=== PATIENT | male | born 1965 | race Caucasian/White ===

== ENCOUNTER 2020-09-10 04:15 | Emergency (ER) | payer SELFPAY ==
[~2020-09-10] VITALS: Ht 167.6 cm; Wt 68.2 kg
[2020-09-10 05:02] LABS: BASO % 0 % (0-3); EOS % 0 % (0-3); HEMOGLOBIN 16.6 g/dL (13.0-17.5); LYMPH # 0.6 x10^3/uL (1.0-4.8); LYMPH % 12 % (24-48); MEAN CORPUSCULAR HEMOGLOBIN 31 pg (25-35); MEAN CORPUSCULAR HGB CONC 35 g/dL (31-37); MEAN CORPUSCULAR VOLUME 89 fL (79-100); MONO # 0.3 x10^3/uL (0.0-1.1); MONO % 7 % (0-9); NEUT % 81 % (31-73); PLATELET COUNT 150 x10^3/uL (140-400); RED BLOOD COUNT 5.42 x10^6/uL (4.30-5.70); RED CELL DISTRIBUTION WIDTH 14.3 % (11.5-14.5)
[2020-09-10 05:10] LABS: CALCIUM 8.5 mg/dL (8.5-10.1); CREATININE 0.8 mg/dL (0.7-1.3); GFR 101.5; POTASSIUM 3.5 mmol/L (3.5-5.1)
[2020-09-10 05:16] LABS: ALBUMIN 4.2 g/dL (3.4-5.0); ALBUMIN/GLOBULIN RATIO 1.1 (1.0-1.7); TOTAL BILIRUBIN 0.6 mg/dL (0.2-1.0); TOTAL PROTEIN 7.9 g/dL (6.4-8.2)
--- NOTE | 2020-09-10 05:23 | PHYS DOC ---
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 Patient is a daily drinker- states today he drank 2 pints of vodka and 24 pack of beer. States his last drink of alcohol was 0300hrs. States he has had abdominal pain x 1 week. The location of pain is diffuse. He has had associated nausea and vomiting x 3 days. (DONN MOULTON DO) Review of Systems: Review of Systems: Review of systems: Constitutional symptoms- No fever, no chills. Eyes- No Discharge, No Visual Loss Respiratory symptoms- No shortness of breath, No wheezing, No Dyspnea on Exertion Cardiovascular Systems; No chest pain, No Palpitations, No syncope Gastrointestinal symptoms: Positive abdominal pain, Positive nausea, Positive vomiting no diarrhea. Genitourinary symptoms: No dysuria. Musculoskeletal symptoms: No back pain No extremity pain. NEUROLOGICAL Symptoms: No headache, no generalized weakness; No focal Weakness Skin: No rash. (DONN MOULTON DO) Heart Score: C/O Chest Pain: N/A Risk Factors: Risk Factors: DM, Current or recent (<one month) smoker, HTN, HLP, family history of CAD, obesity. Risk Scores: Score 0 - 3: 2.5% MACE over next 6 weeks - Discharge Home Score 4 - 6: 20.3% MACE over next 6 weeks - Admit for Clinical Observation Score 7 - 10: 72.7% MACE over next 6 weeks - Early Invasive Strategies (DONN MOULTON DO) Allergies: Allergies: Allergies Coded Allergies Type Severity Reaction Last Updated Verified No Known Drug Allergies 09/10/20 No (DONN MOULTON DO) Physical Exam: PE: General: alert, no acute distress. Skin: warm, dry and intact. HENT: bilateral external ears normal, oropharynx moist, nose normal. Head:: Normocephalic, atraumatic. Neck: Trachea midline. Eyes: EOMI, Normal conjunctiva, No drainage CARDIOVASCULAR: Regular rate and rhythm RESPIRATORY: No respiratory distress Back: Full range of motion. Skin: Warm, dry, no erythema, no rash. MUSCULOSKELETAL: Full range of motion of bilateral upper and lower extremities. GASTROINTESTINAL: Abdomen soft without rebound or guarding. NEUROLOGICAL: Alert and noted to person, place and time. No neurological deficits observed Psychiatric: Cooperative. Normal judgment (KENNEY,DONN I DO) Current Patient Data: Labs: Laboratory Tests Test 09/10/20 04:55 White Blood Count 5.0 x10^3/uL (4.0-11.0) Red Blood Count 5.42 x10^6/uL (4.30-5.70) Hemoglobin 16.6 g/dL (13.0-17.5) Hematocrit 48.0 % (39.0-53.0) Mean Corpuscular Volume 89 fL (79-100) Mean Corpuscular Hemoglobin 31 pg (25-35) Mean Corpuscular Hemoglobin Concent 35 g/dL (31-37) Red Cell Distribution Width 14.3 % (11.5-14.5) Platelet Count 150 x10^3/uL (140-400) Neutrophils (%) (Auto) 81 % (31-73) H Lymphocytes (%) (Auto) 12 % (24-48) L Monocytes (%) (Auto) 7 % (0-9) Eosinophils (%) (Auto) 0 % (0-3) Basophils (%) (Auto) 0 % (0-3) Neutrophils # (Auto) 4.0 x10^3/uL (1.8-7.7) Lymphocytes # (Auto) 0.6 x10^3/uL (1.0-4.8) L Monocytes # (Auto) 0.3 x10^3/uL (0.0-1.1) Eosinophils # (Auto) 0.0 x10^3/uL (0.0-0.7) Basophils # (Auto) 0.0 x10^3/uL (0.0-0.2) Sodium Level 139 mmol/L (136-145) Potassium Level 3.5 mmol/L (3.5-5.1) Chloride Level 97 mmol/L (98-107) L Carbon Dioxide Level 21 mmol/L (21-32) Anion Gap 21 (6-14) H Blood Urea Nitrogen 12 mg/dL (8-26) Creatinine 0.8 mg/dL (0.7-1.3) Estimated GFR (Cockcroft-Gault) 101.5 BUN/Creatinine Ratio 15 (6-20) Glucose Level 123 mg/dL (70-99) H Calcium Level 8.5 mg/dL (8.5-10.1) Total Bilirubin 0.6 mg/dL (0.2-1.0) Aspartate Amino Transferase (AST) 135 U/L (15-37) H Alanine Aminotransferase (ALT) 203 U/L (16-63) H Alkaline Phosphatase 68 U/L (46-116) Total Protein 7.9 g/dL (6.4-8.2) Albumin 4.2 g/dL (3.4-5.0) Albumin/Globulin Ratio 1.1 (1.0-1.7) Lipase 162 U/L (73-393) Laboratory Tests 09/10/20 04:55 Laboratory Tests 09/10/20 04:55 Vital Signs: Vital Signs Date Time Temp Pulse Resp B/P (MAP) Pulse Ox O2 Delivery O2 Flow Rate FiO2 09/10/20 04:15 98.2 92 18 162/91 (114) 99 Room Air 98.2 (DONN MOULTON DO) EKG: EKG: [] Performed at 0557 Rate 94 Normal sinus rhythm No ST elevation No ST depression No acute LA (DONN MOULTON DO) Radiology/Procedures: Radiology/Procedures: [] (DONN MOULTON DO) Course & Med Decision Making: Course & Med Decision Making Pertinent Labs and Imaging studies reviewed. (See chart for details) [] Patient was evaluated for chief complaint. Work-up consisted of laboratory a nalysis and radiologic imaging. Treatment included IV fluids and ativan. Results pending at shift change. Patient signed out to Dr Griffin-- disposition pending labs, radiologic imaging, and re-evaluation. (DONN MOULTON DO) Course & Med Decision Making Assumed care of patient at checkout. Initially on my reevaluation patient stated that he did want help with his alcoholism. He is complaining of severe anxiety. He was given Haldol for this. We will avoid benzodiazepines initially as patient is intoxicated. Romain from the [facility] team came to evaluate the patient. After being offered placement in a rehab facility with a Librium taper patient decided he does not want help with his alcohol and would like to go home. Patient does continue to have some nausea. It is likely that he has alcohol induced gastritis. He does not currently have any GI bleeding. He is hemodynamically stable. CT and ultrasound were done and do not showed an acute abdominal pathology and do not show signs of cholecystitis. Patient will be placed on Pepcid and Zofran. He will be discharged home. I have recommended to him that he return to the emergency room if he develops severe withdrawal symptoms or would like help with his alcoholism. Patient's test results and vitals while in the ED were fully reviewed and discussed with the patient. Patient is stable and at this time does not need admission to the hospital. We have discussed strict return precautions and the importance of following up with their Primary Care Physician. Patient stated understanding and was given an opportunity to ask any questions. Patient is in agreement with plan. (VANGIE GRIFFIN MD) Dragon Disclaimer: Dragon Disclaimer: This electronic medical record was generated, in whole or in part, using a voice recognition dictation system. (DONN MOULTON DO) Departure Departure Impression: Primary Impression: Alcohol abuse Additional Impressions: Abdominal pain Vomiting Disposition: HOME / SELF CARE / HOMELESS Condition: STABLE Referrals: NO PCP (PCP) Patient Instructions: Abdominal Pain, Alcohol Intoxication, Nausea and Vomiting Scripts Ondansetron (ONDANSETRON ODT) 4 Mg Tab.rapdis 1 TAB PO PRN Q6-8HRS, #16 TAB Prov: VANGIE GRIFFIN MD 09/10/20 Famotidine (PEPCID) 20 Mg Tablet 20 MG PO BID, #30 TAB Prov: VANGIE GRIFFIN MD 09/10/20 DONN MOULTON DO Sep 10, 2020 05:23 VANGIE GRIFFIN MD Sep 10, 2020 12:23
[2020-09-10] MEDS ORDERED: CONTRAST GIVEN. MC PRN (05:45)
[2020-09-10] MEDS ORDERED: IOHEXOL 300 MG/ML 100ML VIAL. IV ONE (06:00)
[2020-09-10] MEDS ORDERED: IV NORMAL SALINE 1000ML BAG 1,000 ML IV ONE (06:30)
[2020-09-10 06:55] VITALS: BP 138/77
[2020-09-10] MEDS ORDERED: HALOPERIDOL LACTATE 5 MG/ML VIAL. IVP ONE (07:00)
--- NOTE | 2020-09-10 07:07 | RAD ---
EXAMINATION: CT abdomen and pelvis with IV contrast. INDICATION:54 years, Male, diffuse abdominal pain. TECHNIQUE: Axial CT images of the abdomen and pelvis were obtained. Coronal and sagittal reformatted performed. COMPARISON: None. Exposure: One or more of the following individualized dose reduction techniques were utilized for thi s examination: 1. Automated exposure control 2. Adjustment of the mA and/or kV according to patient size 3. Use of iterative reconstruction technique. FINDINGS: LOWER CHEST: Unremarkable ABDOMEN/PELVIS: Diffuse hepatic steatosis. No suspicious focal hepatic lesion. Unremarkable spleen and pancreas. Gall bladder hydrops without wall thickening, pericholecystic fluid or calcified cholelithiasis. No adrena l nodule. 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 Otherwise, no hydronephrosis or nephrolithiasis in either kidney. There is a 1.3 cm hypodense lesion in the lower pole left kidney wi th Hounsfield unit measures 25, suggesting of a benign cyst. Normal caliber abdominal aorta. Mesenter ic arteries and portal vein are patent. No abdominopelvic lymphadenopathy by size criteria. No ascite s or pneumoperitoneum. Distal esophageal wall thickening, may relate to reflux esophagitis. No bowel obstruction. Appendix is normal. Unremarkable urinary bladder and prostate. No suspicious pelvic mass es. MUSCULOSKELETAL: No acute osseous process. IMPRESSION: 1. No acute intra-abdominal findings. 2. Diffuse hepatic steatosis. 3. Gallbladder hydrops without wall thickening, pericholecystic fluid or calcified cholelithiasis. 4. Distal esophageal wall thickening, may relate to reflux esophagitis. Electronically signed by: Daisy Akbar MD (09/10/2020 7:05 AM) [facility]
--- NOTE | 2020-09-10 07:52 | RAD ---
EXAMINATION: US ABDOMEN LIMITED INDICATION: 54 years, Male, elevated liver function tests, abdominal pain. COMPARISON: 09/10/2020 TECHNIQUE: Grayscale, color Doppler and limited spectral Doppler images of the right upper quadrant w ere obtained. FINDINGS: LIVER: SIZE (LENGTH): 18 cm. ECHOGENICITY: Increased PARENCHYMA: Mild heterogeneous echotexture. No discrete focal lesion. INTRAHEPATIC BILE DUCTS: Nondilated. PORTAL VEIN: Patent with normal hepatopedal flow. GALLBLADDER: GALLBLADDER WALL THICKNESS: 2 mm MORPHOLOGY: Normal morphology. No wall hyperemia or pericholecystic free fluid. LUMEN: Normal. COMMON BILE DUCT DIAMETER: 3 mm Right kidney, pancreas, IVC and proximal abdominal aorta are not visualized due to overlying bowel ga s and fatty liver. FLUID:No free fluid. IMPRESSION: 1. No acute sonographic findings in the right upper abdomen, within the limitation of the exam. 2. Gallbladder hydrops without sonographic evidence of acute cholecystitis. 3. Severe diffuse hepatic steatosis. Electronically signed by: Daisy Akbar MD (09/10/2020 7:49 AM) [facility]
[2020-09-10] MEDS ORDERED: ONDANSETRON PF 4 MG/2 ML VIAL. IVP ONE ×2 (11:00)
[2020-09-10] MEDS ORDERED: LIDO:MAALOX 1:1 20 ML SINGLE DOSE. SWSW ONE (11:45)
[2020-09-10] MEDS ORDERED: FAMOTIDINE 20 MG/2 ML VIAL IVP ONE (11:45)
[2020-09-10] MEDS ORDERED: ONDA4TAB12 PO (12:21)
[2020-09-10] MEDS ORDERED: FAMO-63 PO (12:21)
--- NOTE | 2020-09-11 13:42 | EKG ---
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
== END 2020-09-10 12:39 | disposition home or self-care (01) ==
LOC: ER 04:15
DX: R10.84 Generalized abdominal pain (principal); R11.2 Nausea with vomiting, unspecified; F10.20 Alcohol dependence, uncomplicated; Y90.8 Blood alcohol level of 240 mg/100 ml or more
CPT/HCPCS: 36415; 74177; 76705; 80053; 83690; 85025; 96361; 96374; 96375; 99285; G0480; J1630; J2060; J2405; J3490; J7030; Q9967; 93005